=== PATIENT | male | born 1945 | race Caucasian/White ===

== ENCOUNTER → 2017-04-04 | Outpatient (CLI) | payer OTHER ==
[2017-04-04 11:17] LABS: ALT/SGPT 14 U/L (12-78); AST/SGOT 11 U/L (15-37); BLOOD UREA NITROGEN 15 mg/dl (7-18); BUN/CREATININE RATIO 14.7 (10-20); CARBON DIOXIDE 26 mmol/L (21-32); CHLORIDE 108 mmol/L (98-107); GLUCOSE 88 mg/dl (70-99); SODIUM 143 mmol/L (136-145)
[2017-04-04 11:19] LABS: ALB/GLOB RATIO 1.3 (0.9-2); ALKALINE PHOSPHATASE 68 U/L (45-117)
[2017-04-04 12:19] LABS: CALCIUM 8.9 mg/dl (8.5-10.1)
[2017-04-06 09:10] LABS: METHYLMALONIC ACID 123 NMOL/L (87-318)
[2017-04-06 09:14] LABS: BASO % 0.4 %; BASO ABS # 0.02 K/uL (0-0.2); COMPLETE YES; EOS % 3.2 %; HEMATOCRIT 37.3 % (42-52); LYMPH % 39.1 %; LYMPH ABS # 1.86 K/uL (1.2-3.4); MEAN CELL VOLUME 105.1 fL (80-100); MEAN CORPUSCULAR HEMOGLOBIN 34.9 pg (25-34); MEAN CORPUSCULAR HGB CONC 33.2 g/dl (32-36); MEAN PLATELET VOLUME 10.6 fL (7.4-10.4); MONO % 5.3 %; PLATELET COUNT 194 K/uL (130-400); RED BLOOD COUNT 3.55 M/uL (4.7-6.1); WHITE BLOOD COUNT 4.76 K/uL (4.8-10.8)
--- NOTE | 2017-04-12 09:23 | CODING QUERY MEDICAL NECESSITY ---
CQSUPPORTING DIAGNOSIS NEEDED A supporting diagnosis is required for the test/procedure performed on this patient in order for us to be reimbursed by the patient's insurance. Please provide a supporting diagnosis for the following test/procedure listed below next to the test name along with your signature. *If there is no additional diagnosis for this patient that would support the following test/procedure please document that below next to the test/procedure. Test(s)/Procedure(s) that require a supporting diagnosis: DOS 04/04/17 VITAMIN B12 TEST FOLIC ACID TEST Provider Signature: Date: Thank you Rashida You [facility] Information Management Once completed, please kindly fax back to [phone] For questions please call [phone]
== END | disposition home or self-care (01) ==
LOC: C.LABVPSUW 09:38
PROVIDERS: ATTEND Internal Medicine Critical Care Medicine
DX: D64.9 Anemia, unspecified (principal); R53.83 Other fatigue; E56.9 Vitamin deficiency, unspecified; R53.1 Weakness; R29.6 Repeated falls

== ENCOUNTER 2018-06-04 15:34 | Emergency (ER) | payer OTHER ==
[2018-06-04 15:50] VITALS: TEMP 37; Ht 167.6 cm
[2018-06-04] MEDS ORDERED: BENA10TA10 PO (16:45)
[2018-06-04] MEDS ORDERED: BNC20 PO (16:46)
[2018-06-04] MEDS ORDERED: SNM/25100 PO ×2 (16:54→17:01)
[2018-06-04] MEDS ORDERED: RIVA1TAB4 PO (16:54)
[2018-06-04] MEDS ORDERED: POLY335019 PO (16:54)
[2018-06-04] MEDS ORDERED: AMAN100C18 PO (16:54)
[2018-06-04] MEDS ORDERED: BNC5 PO (16:54)
[2018-06-04] MEDS ORDERED: DRON400T PO (16:54)
[2018-06-04] MEDS ORDERED: CHOL1000 PO (16:54)
[2018-06-04] MEDS ORDERED: MULT-506 PO (16:54)
[2018-06-04] MEDS ORDERED: DUTACAP PO (16:54)
[2018-06-04] MEDS ORDERED: ROPI1TAB PO (16:54)
[2018-06-04] MEDS ORDERED: KLN/5 PO (16:54)
[2018-06-04] MEDS ORDERED: CARB25TA12 PO (17:01)
--- NOTE | 2018-06-04 17:08 | EMERGENCY ROOM VISIT NOTE ---
ED Visit Note First contact with patient: 16:08 CHIEF COMPLAINT: Fall, right hip pain HISTORY OF PRESENTING ILLNESS: This is a 72-year-old male who presents to the emergency department by private vehicle with complaint of right hip pain after a fall 2 days ago. Patient states that he was going into the bathroom in the middle of the night, states that his walker "went out on me" and he lost his balance and fell. He states that he hit the wall with his back, then slid down and hit hard on his right hip. He was able to get himself up from the fall without any help and he has been able to walk on the right leg, but states that he has a lot of pain with doing so. The pain is in his right outer hip and radiates down the thigh towards the knee, he describes as an aching and stabbing pain, worse with movement and weightbearing, better with rest, currently rates the pain as 2/10. He has not taken any medications for the pain and has not tried ice or heat. He is on Xarelto for history of A. fib. Patient reports frequent falls secondary to Parkinson's. He denies any numbness /tingling or weakness of the leg. He denies any back pain. He does not think that he hit his head, but is not completely sure, he denies loss of consciousness. He denies any dizziness, chest pain, shortness of breath, abdominal pain, nausea or vomiting. He states that his urine has been orange in color which he attributes to a medication for his Parkinson's, he is unsure of any blood in his urine because of this. He denies any blood in his stool. REVIEW OF SYSTEMS: A complete 10 point review of systems was reviewed with the patient with pertinent positives and negatives as per history of present illness. All else were negative. PAST MEDICAL HISTORY: Hypertension, atrial fibrillation, Parkinson's disease. SOCIAL HISTORY: Lives at home. He denies tobacco use. ALLERGIES: No known allergies. PHYSICAL EXAM: CONSTITUTIONAL: Pleasant and cooperative. No acute distress. Well appearing and well nourished. HEENT: Normocephalic, atraumatic. Pupils equal, round and reactive to light, EOMI. TMs normal. Pharynx normal. NECK: Supple, full active range of motion without discomfort. No midline tenderness to palpation. No cervical adenopathy. RESPIRATORY: Clear to auscultation bilaterally with no wheezing, crackles, rhonchi or stridor. Equal expansion bilaterally. CARDIOVASCULAR: Regular rate and rhythm with no murmurs, rubs or gallops. Normal peripheral perfusion. No edema. GASTROINTESTINAL: Soft, nontender, nondistended. No palpable masses or HSM. Bowel sounds present in all quadrants. BACK: No midline tenderness of the thoracic or lumbar spine to palpation, no swelling, noted. Full range of motion of the back. MUSCULOSKELETAL: There is tenderness to palpation along the right outer hip and proximal thigh, 2 small bruises noted, no significant ecchymosis or hematoma. No tenderness to palpation of the right hip joint. There is increased pain with range of motion of the right knee and right hip. Bilateral lower extremities are equal in length, no shortening or external rotation of either extremity. Full range of motion of all other joints without discomfort. INTEGUMENTARY: No rash or other significant dermatologic conditions noted. NEUROLOGIC: Alert and oriented X 4 with normal affect. Cranial nerves II-XII grossly intact, no facial droop. No pronator drift. No focal neurologic deficits noted. Normal strength and sensation in all 4 extremities. Normal speech. Slow to move around with antalgic gait of the right leg. ED COURSE AND MEDICAL DECISION MAKING: CC: Patient presenting with complaint of fall, right hip pain DIFFERENTIAL DIAGNOSIS: Includes, but not limited to contusion, hematoma, hip fracture/dislocation, femur fracture, pelvic fracture, head trauma, neck trauma , among others. INTERPRETATION OF LABS: UA negative for blood, but did note some positive nitrite, though negative for bacteria. Urine culture pending. IMAGING: HEAD WITHOUT CONTRAST (CT) CLINICAL HISTORY: 72 years-old Male with fall, on xarelto, eval ICH. Acute fall with head trauma TECHNIQUE: Multiple axial CT images of the head were obtained without contrast. A dose lowering technique was utilized adhering to the principles of ALARA. CT DOSE: 638.56 mGycm COMPARISON: CT cervical spine of same day. FINDINGS: No acute intracranial hemorrhage, midline shift, intracranial mass, hydrocephalus, territorial ischemia or abnormal extra-axial collection. Mild atrophy with ex vacuo ventriculomegaly. Ill-defined low-attenuation about the white matter suggests chronic microvascular ischemic changes. The calvarium is intact. The paranasal sinuses, mastoid air cells, and middle ear cavities are clear. IMPRESSION: No acute intracranial abnormality. ----- CT OF THE CERVICAL SPINE WITHOUT CONTRAST CLINICAL HISTORY: Fall. Evaluate for fracture. COMPARISON STUDY: No previous studies for comparison. TECHNIQUE: Helical axial images of the cervical spine were obtained without IV contrast. Sagittal and coronal reconstructions were viewed. A dose lowering technique was utilized adhering to the principles of ALARA. FINDINGS: Alignment of the cervical spine is anatomic. Craniocervical junction is intact. Marked degenerative changes at the C1-C2 articulation are noted. A well-corticated calcific density posterior to the spinous processes of the upper to mid cervical spine is chronic. There is no acute fracture. Facet joints are intact. Note is made of moderate multilevel degenerative disc disease and facet arthrosis of the cervical spine. There is no prevertebral edema. IMPRESSION: No acute cervical spine fracture or subluxation. ----- CHEST 2 VIEWS ROUTINE CLINICAL HISTORY: Trauma. COMPARISON STUDY: No previous studies for comparison. FINDINGS: Patient is rotated. Note is made of mild cardiomegaly. There is pulmonary vascular congestion without overt pulmonary edema. No airspace opacities are present. No pneumothorax or pleural effusion is noted. IMPRESSION: 1. No pneumothorax. 2. Pulmonary vascular congestion without overt pulmonary edema. Mild cardiomegaly. ----- PELVIS 1 OR 2 VIEW ROUTINE, R FEMUR 2 VIEWS ROUTINE HISTORY: 72 years-old Male right hip/thigh pain, eval fx acute pelvic and right hip pain status post fall COMPARISON: None available TECHNIQUE: Single AP view of the pelvis with 2 views of the right femur FINDINGS: PELVIS: Demineralized appearance of the bones. Left hip total joint arthroplasty with satisfactory alignment. ORIF changes about the left iliac wing. Degenerative changes of the SI joints, pubic symphysis and imaged lower lumbar spine with moderate right hip osteoarthritis. No acute pelvic ring fracture identified. Arterial calcifications are noted. RIGHT FEMUR: Moderate right hip osteoarthritis. No acute fracture or dislocation. Moderate soft tissue swelling lateral to the hip. No opaque foreign body. IMPRESSION: 1. Moderate soft tissue swelling lateral to the right hip without acute fracture or dislocation. 2. Left hip total joint arthroplasty with satisfactory alignment. ----- RIGHT KNEE 2 VIEWS HISTORY: FALL COMPARISON: None. FINDINGS: There is no fracture or dislocation. Anterior soft tissue swelling. No significant knee effusion. Mild chondrocalcinosis. Mild osteoarthritis at the patellofemoral joint and medial compartment of the knee. No radiopaque foreign bodies. IMPRESSION: No fractures. Anterior soft tissue swelling. MEDICATION RECONCILIATION: I attest that I have personally reviewed the patient 's current medication list. INITIAL VITAL SIGNS REVIEW: I reviewed the patient's initial vital signs and interpret them as follows: T: Afebrile; BP: Normotensive; HR: Within normal limits; RR: Within normal limits; Pulse Ox: Within normal limits on room air. Blood pressure screening: The patient was found to have normal blood pressure on screening and does not require follow-up for repeat blood pressure check. SUMMARY: Patient was evaluated at bedside, history and physical exam performed. Patient is alert and oriented, in no acute distress, resting calmly in stretcher. He is slow to move around because of the pain in his right leg. 2 small bruises noted along the lateral aspect of the right hip and upper thigh , no large hematomas or contusions appreciated. No shortening or external rotation of the right hip to suggest dislocation, he is not tender directly over the hip joint, and he is noted to weight-bear and ambulate on the leg without significant difficulty. No evidence of head trauma, patient cannot fully say that he did not hit his head, and is on Xarelto. Neurologic exam is intact with no focal deficits. Orders were placed at bedside for x-rays of the pelvis, right femur and right knee, chest x-ray, CT head and cervical spine to evaluate for trauma. Patient was offered something for pain, he declined. He was offered an ice pack , he declined. Patient discussed with Dr. Valerio, who agrees with my assessment and plan. Imaging reviewed as above, no acute fractures, dislocations, or intra- hemorrhage. There is moderate soft tissue swelling of the right lateral hip consistent with a contusion. Patient reassessed multiple times throughout ED stay, he has remained stable, and reports that his pain has improved since being in the emergency department. He is asking to go home. Patient was updated on all results and plan for discharge, he was encouraged to follow closely with his primary care provider. Patient was also given strict return precautions should his symptoms worsen, he verbalized understanding. Patient was discharged home in stable condition and ambulatory. Current/Historical Medications Scheduled Amantadine Hcl (Amantadine Hcl), 1 CAP PO BID Cholecalciferol (Vitamin D3), 1 TAB PO DAILY Clonazepam (Klonopin), 0.5 MG PO HS Dronedarone Hcl (Multaq), 1 TAB PO BID Dutasteride-Tamsulosin Hcl (Bess), 0.5 MG PO HS Levodopa/Carbidopa (Sinemet 25MG/100MG), 1 TAB PO TID Multivitamin (Multivitamin), 1 TAB PO DAILY Olmesartan Medoxomil (Benicar), 2 TABS PO DAILY Polyethylene Glycol 3350 (Miralax), 17 GM PO DAILY Rivaroxaban (Xarelto), 20 MG PO DAILY Ropinirole (Requip), 1 MG PO TID Allergies Coded Allergies: No Known Allergies (Unverified , 06/04/18) Vital Signs Date Time Temp Pulse Resp B/P (MAP) Pulse Ox O2 Delivery O2 Flow Rate FiO2 06/04/18 18:45 59 20 132/65 100 06/04/18 17:42 54 16 153/72 98 06/04/18 15:50 37.0 61 19 134/72 91 Room Air Laboratory Results Test 06/04/18 16:30 Urine Color DK YELLOW Urine Appearance CLEAR (CLEAR) Urine pH 5.0 (4.5-7.5) Urine Specific [place] 1.025 (1.000-1.030) Urine Protein NEG (NEG) Urine Glucose (UA) NEG (NEG) Urine Ketones TRACE (NEG) Urine Occult Blood NEG (NEG) Urine Nitrite POS (NEG) Urine Bilirubin NEG (NEG) Urine Urobilinogen NEG (NEG) Urine Leukocyte Esterase TRACE (NEG) Urine WBC (Auto) 1-5 /hpf (0-5) Urine RBC (Auto) 0-4 /hpf (0-4) Urine Hyaline Casts (Auto) 10-30 /lpf (0-5) Urine Epithelial Cells (Auto) 10-20 /lpf (0-5) Urine Bacteria (Auto) NEG (NEG) Departure Information Impression Primary Impression: Fall Additional Impression: Contusion of right hip and thigh Dispostion Home / Self-Care Condition GOOD Referrals [facility] (PCP) Patient Instructions ED Contusion Hip, ED Mechanical Fall, ED Prevention Fall, [facility] Additional Instructions You have been evaluated and treated in the emergency department for your right hip pain after falling. CT scans and x-rays today do not show any fractures, dislocations, or internal bleeding. You have a contusion (bruising) of the right hip. You may take regular strength Tylenol (325 mg tablets) 1-2 tablets every 4-6 hours as needed for pain. Do not take more than 3000 mg in 24 hours. Apply ice intermittently infrequently to the area for the next 2 days to help reduce pain and swelling. You may alternate this with heat to help reduce pain. Try to stay off of the leg as much as possible for the next few days until your pain is improved. When you are up and about, use your walker to stabilize yourself and help prevent further falls. Please follow up with your primary care provider in the next few days for recheck of your condition. Please return to the emergency department for any worsening symptoms, including severe worsening pain, severe swelling or bruising of the leg, loss of feeling or movement in the leg, numbness in your groin, problems with your bowel or bladder function, or any other concerns. Problem Qualifiers Primary Impression: Fall Encounter type: initial encounter Qualified Codes: W19.XXXA - Unspecified fall, initial encounter Additional Impression: Contusion of right hip and thigh Encounter type: initial encounter Qualified Codes: S70.01XA - Contusion of right hip, initial encounter; S70.11XA - Contusion of right thigh, initial encounter
--- NOTE | 2018-06-04 17:11 | DIAGNOSTIC IMAGING REPORT ---
HEAD WITHOUT CONTRAST (CT) CLINICAL HISTORY: 72 years-old Male with fall, on xarelto, eval ICH. Acute fall with head trauma TECHNIQUE: Multiple axial CT images of the head were obtained without contrast. A dose lowering technique was utilized adhering to the principles of ALARA. CT DOSE: 638.56 mGycm COMPARISON: CT cervical spine of same day. FINDINGS: No acute intracranial hemorrhage, midline shift, intracranial mass, hydrocephalus, territorial ischemia or abnormal extra-axial collection. Mild atrophy with ex vacuo ventriculomegaly. Ill-defined low-attenuation about the white matter suggests chronic microvascular ischemic changes. The calvarium is intact. The paranasal sinuses, mastoid air cells, and middle ear cavities are clear. IMPRESSION: No acute intracranial abnormality. The above report was generated using voice recognition software. It may contain grammatical, syntax or spelling errors. Electronically signed by: Jatin Rodriguez M.D. 06/04/2018 5:09 PM Dictated Date/Time: 06/04/2018 5:07 PM
--- NOTE | 2018-06-04 17:13 | DIAGNOSTIC IMAGING REPORT ---
CT OF THE CERVICAL SPINE WITHOUT CONTRAST CLINICAL HISTORY: Fall. Evaluate for fracture. COMPARISON STUDY: No previous studies for comparison. TECHNIQUE: Helical axial images of the cervical spine were obtained without IV contrast. Sagittal and coronal reconstructions were viewed. A dose lowering technique was utilized adhering to the principles of ALARA. FINDINGS: Alignment of the cervical spine is anatomic. Craniocervical junction is intact. Marked degenerative changes at the C1-C2 articulation are noted. A well-corticated calcific density posterior to the spinous processes of the upper to mid cervical spine is chronic. There is no acute fracture. Facet joints are intact. Note is made of moderate multilevel degenerative disc disease and facet arthrosis of the cervical spine. There is no prevertebral edema. IMPRESSION: No acute cervical spine fracture or subluxation. Electronically signed by: Thang Heck M.D. 06/04/2018 5:12 PM Dictated Date/Time: 06/04/2018 5:08 PM
--- NOTE | 2018-06-04 17:45 | DIAGNOSTIC IMAGING REPORT ---
CHEST 2 VIEWS ROUTINE CLINICAL HISTORY: Trauma. COMPARISON STUDY: No previous studies for comparison. FINDINGS: Patient is rotated. Note is made of mild cardiomegaly. There is pulmonary vascular congestion without overt pulmonary edema. No airspace opacities are present. No pneumothorax or pleural effusion is noted. IMPRESSION: 1. No pneumothorax. 2. Pulmonary vascular congestion without overt pulmonary edema. Mild cardiomegaly. Electronically signed by: Thang Heck M.D. 06/04/2018 5:43 PM Dictated Date/Time: 06/04/2018 5:42 PM
--- NOTE | 2018-06-04 17:46 | DIAGNOSTIC IMAGING REPORT ---
PELVIS 1 OR 2 VIEW ROUTINE, R FEMUR 2 VIEWS ROUTINE HISTORY: 72 years-old Male right hip/thigh pain, eval fx acute pelvic and right hip pain status post fall COMPARISON: None available TECHNIQUE: Single AP view of the pelvis with 2 views of the right femur FINDINGS: PELVIS: Demineralized appearance of the bones. Left hip total joint arthroplasty with satisfactory alignment. ORIF changes about the left iliac wing. Degenerative changes of the SI joints, pubic symphysis and imaged lower lumbar spine with moderate right hip osteoarthritis. No acute pelvic ring fracture identified. Arterial calcifications are noted. RIGHT FEMUR: Moderate right hip osteoarthritis. No acute fracture or dislocation. Moderate soft tissue swelling lateral to the hip. No opaque foreign body. IMPRESSION: 1. Moderate soft tissue swelling lateral to the right hip without acute fracture or dislocation. 2. Left hip total joint arthroplasty with satisfactory alignment. The above report was generated using voice recognition software. It may contain grammatical, syntax or spelling errors. Electronically signed by: Jatin Rodriguez M.D. 06/04/2018 5:45 PM Dictated Date/Time: 06/04/2018 5:42 PM
[2018-06-04 18:45] VITALS: BP 132/65; PULSE 59; O2SAT 100
== END 2018-06-04 18:47 | disposition home or self-care (01) ==
LOC: C.EDB 15:38 → C.EDD 18:47
DX: S70.01XA Contusion of right hip, initial encounter (principal); S70.11XA Contusion of right thigh, initial encounter; W01.198A Fall on same level from slipping, tripping and stumbling with subsequent striking against other object, initial encounter; I10 Essential (primary) hypertension; I48.91 Unspecified atrial fibrillation; G20 Parkinson's disease; Z79.899 Other long term (current) drug therapy

== ENCOUNTER → 2018-06-04 | Outpatient (CLI) | payer OTHER ==
[~2018-06-04] MED LIST: AMAN100C18 PO; BENA10TA10 PO; BNC20 PO; BNC5 PO; CARB25TA12 PO; CHOL1000 PO; DRON400T PO; DUTACAP PO; KLN/5 PO; MULT-506 PO; POLY335019 PO; RIVA1TAB4 PO; ROPI1TAB PO; SNM/25100 PO
--- NOTE | 2018-06-04 14:43 | DIAGNOSTIC IMAGING REPORT ---
RIGHT KNEE 2 VIEWS HISTORY: FALL COMPARISON: None. FINDINGS: There is no fracture or dislocation. Anterior soft tissue swelling. No significant knee effusion. Mild chondrocalcinosis. Mild osteoarthritis at the patellofemoral joint and medial compartment of the knee. No radiopaque foreign bodies. IMPRESSION: No fractures. Anterior soft tissue swelling. Electronically signed by: Silas Almeida M.D. 06/04/2018 2:41 PM Dictated Date/Time: 06/04/2018 2:39 PM
== END | disposition home or self-care (01) ==
LOC: C.RAD 14:09
PROVIDERS: ATTEND Nurse Practitioner
DX: R52 Pain, unspecified (principal); R60.9 Edema, unspecified; W19.XXXA Unspecified fall, initial encounter

== ENCOUNTER 2018-10-23 09:30 | Inpatient (IN) ==
[2018-10-23 09:56] LABS: Basophils # (auto) 0.02 K/uL (0-0.2); Basophils % (auto) 0.5 %; Eosinophils % (auto) 2.5 %; Hematocrit (blood only) 35.9 % (42-52); Hemoglobin 12.4 g/dL (14.0-18.0); Lymphocytes # (auto) 1.03 K/uL (1.2-3.4); Lymphocytes % (auto) 25.9 %; Mean Corpuscular Hgb Conc 34.5 g/dL (32-36); Mean Corpuscular Volume 100.6 fL (80-100); Monocytes # (auto) 0.25 K/uL (0.11-0.59); Monocytes % (auto) 6.3 %; Neutrophils # (auto) 2.58 K/uL (1.4-6.5); Neutrophils % (auto) 64.8 %; Platelet Count 103 K/uL (130-400); RDW Coefficient of Variation 15.1 % (11.5-14.5); Red Blood Count 3.57 M/uL (4.7-6.1); White Blood Count 3.98 K/uL (4.8-10.8)
--- NOTE | 2018-10-23 09:57 | XRay Report ---
XR chest 1V portable HISTORY: Sepsis COMPARISON: Chest 10/09/2018. FINDINGS: No pneumothorax. No pleural effusions. The heart remains moderately enlarged. Diffuse inter stitial and vascular thickening persists consistent with mild pulmonary edema. This remains unchanged . No new focal lung consolidations to suggest pneumonia. IMPRESSION: No change in the mild interstitial pulmonary edema and cardiomegaly. Electronically signed by: Silas Almeida M.D. 10/23/2018 9:55 AM
--- NOTE | 2018-10-23 10:04 | Emergency Department Note ---
Entered by Gillian Osborne acting as a scribe for History of Present Illness General Chief complaint: Hypothermia Stated complaint: hypothermia / [place] Time Seen by Provider: 10/23/18 09:36 Source: other (nursing staff) Limitations: other (Parkinson's Disease) History of Present Illness Provider complaint: hypothermia Onset (ago): hour(s) (today) Location: left and right Quality: + other (hypothermia) The patient is a 73 year old male who presents to the Emergency Room with complaints of hypothermia today. Limited HPI secondary to Parkinson's Disease. Nursing staff states that the patient has a history of hypothermia. Per nursing staff, the patient is at his baseline mental status. Per nursing staff, they were unable to get the patient's temperature higher than 90 degrees the last time he was here. Home Medications Home Medications Medication Instructions Recorded Confirmed Type acetaminophen [Tylenol] 650 mg PO Q6H PRN 07/04/18 10/23/18 History carbidopa-levodopa [Sinemet CR] 1 tab PO TID 07/04/18 10/23/18 History cholecalciferol (vitamin D3) 1 tab PO QAM 07/04/18 10/23/18 History [Vitamin D3] clonazepam 0.5 mg PO HS 07/04/18 10/23/18 History dronedarone [Multaq] 400 mg PO BID 07/04/18 10/23/18 History dutasteride-tamsulosin [Bess] 1 cap PO HS 07/04/18 10/23/18 History entacapone 200 mg PO TID 07/04/18 10/23/18 History polyethylene glycol 3350 [Miralax] 17 g PO BID 07/04/18 10/23/18 History ropinirole [Requip] 1 mg PO TID 07/04/18 10/23/18 History pediatric multivitamin [Gummi Bear 1 tab PO QAM 10/23/18 10/23/18 History Multivitamin] Allergies Allergy/AdvReac Type Severity Reaction Status Date / Time No Known Allergies Allergy Unverified 10/23/18 11:40 Past Med/Surg History Medical History Parkinson disease (Chronic) Afib (Chronic) Social History Current Living Situation[place] current occupational status: retired Feels Safe at Home: Yes Smoking Status: Never smoker Hx Alcohol Use: No Hx Substance Use: No Beliefs That Will Affect Care: None Preferred Language: Nepali Communication Ability: Impaired Communication Ability Comment: answers some yes/no questions or states, "my kinows" Truss Designer Required: No Review of Systems Limited ROS secondary to Parkinson's Disease. Physical Exam Vital Signs Vital Signs - 24 hr 10/23/18 09:46 10/23/18 09:53 10/23/18 10:01 Temperature 33.6 C L Temperature Source Rectal Rectal Temperature Sepsis Recent Fever Within 48 Hours No Sepsis Action Taken by Nursing No Action Required Pulse Rate 62 54 L 53 L Pulse Rate [Brachial] Pulse Rhythm Regular Pulse Strength Normal Respiratory Rate 20 14 15 Respiratory Effort / Characteristics Non-Labored Spontaneous Respiratory Depth Normal Respiratory Pattern Regular Blood Pressure 151/73 H 143/65 H 136/64 Blood Pressure [Right Arm] Blood Pressure Mean 99 91 88 Blood Pressure Mean [Right Arm] Blood Pressure Position Sitting Blood Pressure Position [Right Arm] Pulse Oximetry 98 97 94 Oxygen Delivery Method Room Air 10/23/18 10:23 10/23/18 10:38 10/23/18 11:00 Temperature Temperature Source Rectal Temperature Sepsis Recent Fever Within 48 Hours Sepsis Action Taken by Nursing Pulse Rate 66 46 L 47 L Pulse Rate [Brachial] Pulse Rhythm Pulse Strength Respiratory Rate 22 16 18 Respiratory Effort / Characteristics Respiratory Depth Respiratory Pattern Blood Pressure 144/69 H 137/68 Blood Pressure [Right Arm] Blood Pressure Mean 94 91 Blood Pressure Mean [Right Arm] Blood Pressure Position Blood Pressure Position [Right Arm] Pulse Oximetry 94 93 95 Oxygen Delivery Method 10/23/18 11:01 10/23/18 11:10 10/23/18 11:20 Temperature Temperature Source Rectal Temperature Sepsis Recent Fever Within 48 Hours Sepsis Action Taken by Nursing Pulse Rate 46 L 44 L 48 L Pulse Rate [Brachial] Pulse Rhythm Pulse Strength Respiratory Rate 16 9 L 10 L Respiratory Effort / Characteristics Respiratory Depth Respiratory Pattern Blood Pressure 131/64 Blood Pressure [Right Arm] Blood Pressure Mean 86 Blood Pressure Mean [Right Arm] Blood Pressure Position Blood Pressure Position [Right Arm] Pulse Oximetry 94 93 96 Oxygen Delivery Method 10/23/18 11:30 10/23/18 11:32 10/23/18 11:40 Temperature Temperature Source Rectal Temperature Sepsis Recent Fever Within 48 Hours Sepsis Action Taken by Nursing Pulse Rate 50 L 48 L 50 L Pulse Rate [Brachial] Pulse Rhythm Pulse Strength Respiratory Rate 16 19 19 Respiratory Effort / Characteristics Respiratory Depth Respiratory Pattern Blood Pressure Blood Pressure [Right Arm] Blood Pressure Mean 74 Blood Pressure Mean [Right Arm] Blood Pressure Position Blood Pressure Position [Right Arm] Pulse Oximetry 95 96 95 Oxygen Delivery Method 10/23/18 11:46 10/23/18 11:50 10/23/18 12:00 Temperature Temperature Source Rectal Temperature Sepsis Recent Fever Within 48 Hours Sepsis Action Taken by Nursing Pulse Rate 52 L 55 L 56 L Pulse Rate [Brachial] Pulse Rhythm Pulse Strength Respiratory Rate 13 17 13 Respiratory Effort / Characteristics Respiratory Depth Respiratory Pattern Blood Pressure 132/62 Blood Pressure [Right Arm] Blood Pressure Mean 85 Blood Pressure Mean [Right Arm] Blood Pressure Position Blood Pressure Position [Right Arm] Pulse Oximetry 97 97 96 Oxygen Delivery Method 10/23/18 12:01 10/23/18 12:10 10/23/18 12:16 Temperature Temperature Source Rectal Temperature Sepsis Recent Fever Within 48 Hours Sepsis Action Taken by Nursing Pulse Rate 55 L 58 L 56 L Pulse Rate [Brachial] Pulse Rhythm Pulse Strength Respiratory Rate 15 24 18 Respiratory Effort / Characteristics Respiratory Depth Respiratory Pattern Blood Pressure 131/63 127/68 Blood Pressure [Right Arm] Blood Pressure Mean 85 87 Blood Pressure Mean [Right Arm] Blood Pressure Position Blood Pressure Position [Right Arm] Pulse Oximetry 96 95 97 Oxygen Delivery Method 10/23/18 12:20 10/23/18 12:30 10/23/18 12:31 Temperature Temperature Source Rectal Temperature 34.9 C L Sepsis Recent Fever Within 48 Hours Sepsis Action Taken by Nursing Pulse Rate 58 L 60 60 Pulse Rate [Brachial] Pulse Rhythm Pulse Strength Respiratory Rate 15 14 21 Respiratory Effort / Characteristics Respiratory Depth Respiratory Pattern Blood Pressure 133/74 Blood Pressure [Right Arm] Blood Pressure Mean 93 Blood Pressure Mean [Right Arm] Blood Pressure Position Blood Pressure Position [Right Arm] Pulse Oximetry 96 Oxygen Delivery Method 10/23/18 12:57 10/23/18 13:43 Temperature 36.4 C L Temperature Source Oral Rectal Temperature Sepsis Recent Fever Within 48 Hours Sepsis Action Taken by Nursing Pulse Rate Pulse Rate [Brachial] 68 Pulse Rhythm Pulse Strength Respiratory Rate 20 Respiratory Effort / Characteristics Spontaneous Respiratory Depth Respiratory Pattern Regular Blood Pressure Blood Pressure [Right Arm] 125/63 Blood Pressure Mean Blood Pressure Mean [Right Arm] 83 Blood Pressure Position Blood Pressure Position [Right Arm] Lying Pulse Oximetry 95 Oxygen Delivery Method Room Air Room Air GENERAL: Patient is listless and slow to respond to questions. He follows questions appropriately. EYES: The conjunctivae are clear. The pupils are round and reactive. EARS, NOSE, MOUTH AND THROAT: The nose is without any evidence of any deformity. Mucous membranes are moist tongue is midline NECK: The neck is nontender and supple. RESPIRATORY: Normal respiratory effort is noted there is no evidence of wheezing rhonchi or rales CARDIOVASCULAR: Regular rate and rhythm noted there no murmurs rubs or gallops normal S1 normal S2 GASTROINTESTINAL: The abdomen is soft. Bowel sounds are present in all quadrants. Abdomen is nontender MUSCULOSKELETAL/EXTREMITIES: There is no evidence of gross deformity full range of motion is noted in the hips and shoulders SKIN: There is no obvious evidence of any rash. Trace pedal edema was noted bilaterally. NEUROLOGIC: Patient is awake. He is slow to follow commands. Strength was symmetric in all extremities but muscle rigidity was appreciated. Course 0936: Past medical records reviewed. The patient was evaluated in room C1A, and a complete history and physical examination were performed. 1134: I discussed the patient's case with Dr. Brittany Chandler who will evaluate the patient for further management. Consultations Consultation #1: Dr. Brittany Chandler Time: 11:34 Medical Decision Making Differential Diagnosis Differentials include: ICH, CVA, PNA, bronchitis, PE, UTI, gastroenteritis, electrolyte abnormality, ACS, CHF among others. Medical Records Attestation: I reviewed the patient's medical records. Home Medications Current Medication List: was personally reviewed by me Laboratory Data Attestation: I reviewed the patient's lab results. Result diagrams: 10/23/18 09:44 10/23/18 09:44 Lab Results 10/23/18 10/23/18 10/23/18 Range/Units 09:44 09:44 09:44 WBC 3.98 L (4.8-10.8) K/uL RBC 3.57 L (4.7-6.1) M/uL Hgb 12.4 L (14.0-18.0) g/dL Hct 35.9 L (42-52) % MCV 100.6 H (80-100) fL MCH 34.7 H (25-34) pg MCHC 34.5 (32-36) g/dL RDW Std Deviation 54.0 H (36.4-46.3) fL RDW Coeff of Martha 15.1 H (11.5-14.5) % Plt Count 103 L (130-400) K/uL MPV 11.0 H (7.4-10.4) fL Immature Gran % (Auto) 0.0 % Neut % (Auto) 64.8 % Lymph % (Auto) 25.9 % [facility] % (Auto) 6.3 % Eos % (Auto) 2.5 % Baso % (Auto) 0.5 % Immature Gran # (Auto) 0.00 (0.00-0.02) K/uL Neut # (Auto) 2.58 (1.4-6.5) K/uL Lymph # (Auto) 1.03 L (1.2-3.4) K/uL [facility] [place] [facility] # (Auto) 0.25 (0.11-0.59) K/uL Eos # (Auto) 0.10 (0-0.5) K/uL Baso # (Auto) 0.02 (0-0.2) K/uL ESR 16 H (0-14) mm/hr PT 10.7 (9.0-12.0) Seconds INR 1.1 (0.9-1.1) APTT 31.2 H (21.0-31.0) Seconds PTT Ratio 1.2 Sodium (136-145) mmol/L Potassium (3.5-5.1) mmol/L Chloride (98-107) mmol/L Carbon Dioxide (21-32) mmol/L Anion Gap (3-11) BUN (7-18) mg/dl Creatinine (0.6-1.4) mg/dl Est Cr Clr Drug Dosing Est GFR ( Amer) Est GFR (Non-Af Amer) BUN/Creatinine Ratio (10-20) Glucose (70-99) mg/dl POC Lactic Acid Josr (0.90-1.70) mmol/L Calcium (8.5-10.1) mg/dl Magnesium (1.8-2.4) mg/dl Total Bilirubin (0.2-1) mg/dl AST (15-37) U/L ALT (12-78) U/L Alkaline Phosphatase (45-117) U/L Troponin I (0-0.045) ng/ml C-Reactive Protein (0-0.29) mg/dl Total Protein (6.4-8.2) gm/dl Albumin (3.4-5.0) gm/dl Globulin (2.5-4.0) gm/dl Albumin/Globulin Ratio (0.9-2) TSH (0.300-4.500) uIu/ml Free T4 (0.8-1.6) ng/dl 10/23/18 10/23/18 Range/Units 09:44 09:53 WBC (4.8-10.8) K/uL RBC (4.7-6.1) M/uL Hgb (14.0-18.0) g/dL Hct (42-52) % MCV (80-100) fL MCH (25-34) pg MCHC (32-36) g/dL RDW Std Deviation (36.4-46.3) fL RDW Coeff of Martha (11.5-14.5) % Plt Count (130-400) K/uL MPV (7.4-10.4) fL Immature Gran % (Auto) % Neut % (Auto) % Lymph % (Auto) % [facility] [place] % (Auto) % Eos % (Auto) % Baso % (Auto) % Immature Gran # (Auto) (0.00-0.02) K/uL Neut # (Auto) (1.4-6.5) K/uL Lymph # (Auto) (1.2-3.4) K/uL [facility] [place] [facility] # (Auto) (0.11-0.59) K/uL Eos # (Auto) (0-0.5) K/uL Baso # (Auto) (0-0.2) K/uL ESR (0-14) mm/hr PT (9.0-12.0) Seconds INR (0.9-1.1) APTT (21.0-31.0) Seconds PTT Ratio Sodium 144 (136-145) mmol/L Potassium 4.4 (3.5-5.1) mmol/L Chloride 112 H (98-107) mmol/L Carbon Dioxide 27 (21-32) mmol/L Anion Gap 5.0 (3-11) BUN 19 H (7-18) mg/dl Creatinine 0.82 (0.6-1.4) mg/dl Est Cr Clr Drug Dosing Not Reportable Est GFR ( Amer) 102.4 Est GFR (Non-Af Amer) 88.3 BUN/Creatinine Ratio 23.2 H (10-20) Glucose 66 L (70-99) mg/dl POC Lactic Acid Josr 0.53 L (0.90-1.70) mmol/L Calcium 9.1 (8.5-10.1) mg/dl Magnesium 2.0 (1.8-2.4) mg/dl Total Bilirubin 0.6 (0.2-1) mg/dl AST 23 (15-37) U/L ALT 31 (12-78) U/L Alkaline Phosphatase 102 (45-117) U/L Troponin I < 0.015 (0-0.045) ng/ml C-Reactive Protein 0.94 H (0-0.29) mg/dl Total Protein 7.2 (6.4-8.2) gm/dl Albumin 3.5 (3.4-5.0) gm/dl Globulin 3.7 (2.5-4.0) gm/dl Albumin/Globulin Ratio 1.0 (0.9-2) TSH 9.730 H (0.300-4.500) uIu/ml Free T4 1.08 (0.8-1.6) ng/dl Imaging Data Radiologist's Impression: Radiology results as stated below per my review and the radiologist's interpretation: XR chest 1V portable HISTORY: Sepsis COMPARISON: Chest 10/09/2018. FINDINGS: No pneumothorax. No pleural effusions. The heart remains moderately enlarged. Diffuse interstitial and vascular thickening persists consistent with mild pulmonary edema. This remains unchanged. No new focal lung consolidations to suggest pneumonia. IMPRESSION: No change in the mild interstitial pulmonary edema and cardiomegaly. Electronically signed by: Silas Almeida M.D. 10/23/2018 9:[address] OF THE HEAD WITHOUT CONTRAST CLINICAL HISTORY: hypothermic, hx of parkinsons COMPARISON STUDY: Head CT October 09, 2018. CT DOSE: 729.78 mGycm TECHNIQUE: Helical axial images of the head were obtained without IV contrast. Automated exposure control was utilized for the study. A dose lowering technique was utilized adhering to the principles of ALARA. FINDINGS: No acute intracranial hemorrhage, midline shift or mass effect is present. Ventricular system is stable. Basilar cisterns are patent. There are no extra axial collections. White matter hypodensities are unchanged. There are no findings to suggest acute dural sinus thrombosis or acute territorial infarct. There are no significant calvarial abnormalities. There is mild ethmoid sinus mucosal thickening. IMPRESSION: No acute intracranial findings. Electronically signed by: Thang Heck M.D. 10/23/2018 10:21 AM ECG Data Attestation: I personally reviewed and interpreted this ECG as follows: Indication: other (hypothermia) Rate (beats per minute): 53 Rhythm: sinus bradycardia Findings: no PAC, no PVC, no ST depression, no ST elevation and no ectopy Comparison ECG Date: from (10/09/18) Change: no significant change Blood Pressure Blood Pressure Findings: Normal blood pressure MDM Narrative The patient is a 73-year-old male who presented to the emergency department for an evaluation of frequency of urination and hematuria. The patient has been having problems with hematuria over the last few months. He was seen by urologist in [place] where he lived previously and had a cystoscopy. No cause for the patient's hematuria could be found. The patient presents to the emergency department today because of ongoing symptoms. His abdominal exam was not consistent with a surgical abdomen. The patient was not urinary retention. I discussed the patient's laboratory and radiographic studies with him. I also discussed his case with the [facility] urology group. At this time the patient is scheduled for a follow-up appointment but they will change his appointment to a cystoscopy. The patient was encouraged to continue all medications as prescribed and return to the emergency department immediately if symptoms change worsen or the need arises. Otherwise I did recommend that he follow-up with his family doctor as well. Impression & Plan Hypothermia, Parkinson's disease Discharge Plan Visit Data *Final* Discharge Date/Time: 10/23/18 12:56 Chief Complaint: Hypothermia Stated Complaint: hypothermia / [facility] ED Provider: Tab Whipple Discharge Problem: Hypothermia, Parkinson's disease Patient Disposition: Admitted As Inpatient Discharge Instructions Interventions: ED Discharge Assessment Last Done: 10/23/18 12:56 The scribe's documentation has been prepared under my direction and personally reviewed by me in its entirety. I confirm that the note above accurately reflects all work, treatment, procedures, and medical decision making performed by me.
[2018-10-23 10:07] LABS: INR 1.1 (0.9-1.1); Partial Thromboplastin Ratio 1.2; Partial Thromboplastin Time 31.2 Seconds (21.0-31.0); Prothrombin Time 10.7 Seconds (9.0-12.0)
[2018-10-23 10:10] LABS: Albumin Level 3.5 gm/dl (3.4-5.0); Aspartate Aminotransferase 23 U/L (15-37); BUN Creatinine Ratio 23.2 (10-20); Blood Urea Nitrogen 19 mg/dl (7-18); C Reactive Protein 0.94 mg/dl (0-0.29); Calcium 9.1 mg/dl (8.5-10.1); Carbon Dioxide 27 mmol/L (21-32); Chloride 112 mmol/L (98-107); Est GFR (African American) 102.4; Est GFR (Non-African American) 88.3; Glucose 66 mg/dl (70-99); Potassium 4.4 mmol/L (3.5-5.1); Sodium 144 mmol/L (136-145)
[2018-10-23 10:21] LABS: Alanine Aminotransferase 31 U/L (12-78); Alkaline Phosphatase 102 U/L (45-117); Bilirubin,Total 0.6 mg/dl (0.2-1); Globulin 3.7 gm/dl (2.5-4.0); Total Protein 7.2 gm/dl (6.4-8.2); Troponin I < 0.015 ng/ml (0-0.045)
--- NOTE | 2018-10-23 10:22 | CT Scan Report ---
CT OF THE HEAD WITHOUT CONTRAST CLINICAL HISTORY: hypothermic, hx of parkinsons COMPARISON STUDY: Head CT October 09, 2018. CT DOSE: 729.78 mGycm TECHNIQUE: Helical axial images of the head were obtained without IV contrast. Automated exposure con trol was utilized for the study. A dose lowering technique was utilized adhering to the principles o f ALARA. FINDINGS: No acute intracranial hemorrhage, midline shift or mass effect is present. Ventricular syst em is stable. Basilar cisterns are patent. There are no extra axial collections. White matter hypoden sities are unchanged. There are no findings to suggest acute dural sinus thrombosis or acute territor ial infarct. There are no significant calvarial abnormalities. There is mild ethmoid sinus mucosal th ickening. IMPRESSION: No acute intracranial findings. Electronically signed by: Thang Heck M.D. 10/23/2018 10:21 AM
[2018-10-23 10:33] LABS: T4 Free Thyroxine 1.08 ng/dl (0.8-1.6)
--- NOTE | 2018-10-23 12:28 | History & Physical Report ---
Date of Service October 23, 2018 Assessment & Plan (1) Hypothermia: Uncertain etiology CXR neg CT head neg PRP WNL Mild anemia with an elevated MCV B12, folate pending Mild hypothyroidism noted, T4 WNL T3, rT3, thyroid Ab pending Core temp rewarming issues vs hypothyroidism, will start on low dose synthroid (2) Hypothyroid: Not a current dx Also noted to be bradycardia to the 40s both today and on last visit Asx with this apparently (3) Parkinson's disease: continue home meds (4) A-fib: continue home meds (5) DVT prophylaxis: SCDs History of Present Illness Chief Complaint: 73 y/o M who was sent here from the [facility] for c/o hypothermia. Pt is unable to give me any hx regarding this and there are no family members at bedside. Per ED record, pt was seen in the ED on 10/09 and was hypothermic at that time as well. He was rewarmed and returned to [facility]. I spoke with Dr. Glasgow who states that he cannot accept pt back without full rewarming as their facility is not allowed to use any sort of warming device. He feels that pt was not fully rewarmed to his core prior to being returned to their facility. Pt has declined in mentation, however Dr. Glasgow states he has not seen pt since prior to his inital trip to the ED on 10/09. Unable to obtain full ROS. Pt answers "no" when asked if he has any pain or trouble breathing. Primary Care Provider: [facility] Allergies Allergy/AdvReac Type Severity Reaction Status Date / Time No Known Allergies Allergy Unverified 10/23/18 11:40 Home Medications Home Medications Medication Instructions Recorded Confirmed Type acetaminophen [Tylenol] 650 mg PO Q6H PRN 07/04/18 10/23/18 History carbidopa-levodopa [Sinemet CR] 1 tab PO TID 07/04/18 10/23/18 History cholecalciferol (vitamin D3) 1 tab PO QAM 07/04/18 10/23/18 History [Vitamin D3] clonazepam 0.5 mg PO HS 07/04/18 10/23/18 History dronedarone [Multaq] 400 mg PO BID 07/04/18 10/23/18 History dutasteride-tamsulosin [Bess] 1 cap PO HS 07/04/18 10/23/18 History entacapone 200 mg PO TID 07/04/18 10/23/18 History polyethylene glycol 3350 [Miralax] 17 g PO BID 07/04/18 10/23/18 History ropinirole [Requip] 1 mg PO TID 07/04/18 10/23/18 History pediatric multivitamin [Gummi Bear 1 tab PO QAM 10/23/18 10/23/18 History Multivitamin] Past Med/Surg History Medical History Parkinson disease (Chronic) Afib (Chronic) Social History Current Living Situation: Long Term current occupational status: retired Feels Safe at Home: Yes Smoking Status: Never smoker Hx Alcohol Use: No Hx Substance Use: No Beliefs That Will Affect Care: None Preferred Language: Mongolian Communication Ability: Impaired Communication Ability Comment: answers some yes/no questions or states, "my kinows" 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 Review of Systems Pertinent positives and negatives reviewed in HPI--all others negative Physical Exam 2 Vital Signs (Past 24 Hours): Last Vital Signs Temp 33.6 C L 10/23/18 09:46 Pulse 46 L 10/23/18 10:38 Resp 16 10/23/18 10:38 BP 137/68 10/23/18 10:38 Pulse Ox 93 10/23/18 10:38 Constitutional: WD/WN, vitals as above Eyes: normal visual victoria by confrontation and + anicteric sclerae Neck: normal visual inspection and trachea midline Respiratory: normal respiratory effort, lungs clear to auscultation Cardiovascular: Rate/Rhythm: regular rate and regular rhythm Gastrointestinal (Abdomen): Inspection/Auscultation: abdomen not distended Percussion/Palpation: abdomen soft; abdomen nontender Musculoskeletal: Head/Neck/Chest: normocephalic and head atraumatic negative for edema, peripheral pulses intact Skin: no rashes, warm and dry Neurologic: awake Speech / Cognition: normal speech (clear when answering no, no other speech noted) lethargic to respond Psychiatric: Orientation: oriented to person Eye Contact: good eye contact Affect: + flat affect Results & Data Diagnostic Findings CXR neg CT head neg for acute Code Status & VTE Plan Code Status DNR/DNI per documentation from facility VTE Prophylaxis Plan VTE Prophylaxis will be ordered: Yes _ (1) Hypothermia Encounter type: initial encounter Qualified Code(s): T68.XXXA - Hypothermia, initial encounter
[2018-10-23] MEDS ORDERED: NON-FORMULARY MEDICATION (Acetaminophen [Tylenol] 650 MG) PO PRN (13:41)
[2018-10-23] MEDS ORDERED: ACETAMINOPHEN 325 MG TAB PO PRN (13:41)
[2018-10-23] MEDS ORDERED: ONDANSETRON INJ 2 MG/ML 2 ML VIAL IV PRN (13:41)
[2018-10-23] MEDS ORDERED: MAGNESIUM HYDROXIDE SUSP 30 ML UDC PO PRN (13:41)
[2018-10-23 15:04] LABS: Folate (Folic Acid) 16.27 ng/ml (>5.38)
[2018-10-23 15:09] LABS: T3 Free 2.84 pg/ml (2.3-4.2)
[2018-10-23] MEDS: ROPINIROLE HCL 1 MG TABLET PO SCH ×2 (15:28→21:54)
[2018-10-23] MEDS: CARBIDOPA/LEVODOPA 50/200MG EXT REL TAB PO SCH ×2 (15:28→21:53)
[2018-10-23] MEDS: ENTACAPONE 200 MG TAB PO SCH ×2 (15:28→21:53)
[2018-10-23] MEDS ORDERED: JALYN PO SCH (21:00)
[2018-10-23] MEDS: POLYETHYLENE (MIRALAX) 17 GM PACK PO SCH (21:52)
[2018-10-23] MEDS: clonazePAM 0.5 MG TAB PO SCH (21:53)
[2018-10-23] MEDS: DRONEDARONE HCL 400 MG TAB PO SCH (21:53)
[2018-10-23] MEDS: DUTASTERIDE PO SCH (22:05)
[2018-10-23] MEDS: TAMSULOSIN PO SCH (22:05)
[2018-10-24] MEDS ORDERED: LEVOTHYROXINE SODIUM 25 MCG TABLET PO SCH (06:30)
--- NOTE | 2018-10-24 06:51 | XRay Report ---
XR chest 1V portable CLINICAL HISTORY: 73 years-old Male presenting with Possible aspiration. TECHNIQUE: Portable upright AP view of the chest was obtained. COMPARISON: 10/23/2018. FINDINGS: The patient is BURM[place] rotated. Atherosclerosis of the aortic arch. Cardiac silhouette enlarged. Pulmonar y vascular prominence. Bronchial wall cuffing suggested. Mildly low lung volumes. Minimal basilar opa cities. Trace right pleural effusion suggested. No pneumothorax. Degenerative changes of the thoracic spine. Upper abdomen normal. IMPRESSION: 1. Cardiomegaly with volume overload/congestive change. No maritza pulmonary edema at this time. Findi ngs are not significantly changed from prior. 2. Trace right pleural effusion suspected. Electronically signed by: Kyle Waters M.D. 10/24/2018 6:50 AM
[2018-10-24] MEDS ORDERED: PIPERACILL/TAZOBAC CONSULT ACTIVE PRN (07:52)
[2018-10-24] MEDS: ENTACAPONE 200 MG TAB PO SCH ×3 (08:02→19:52)
[2018-10-24] MEDS: FLINTSTONES COMPLETE CHEWABLE TAB PO SCH (08:02)
[2018-10-24] MEDS: [UNRECOGNIZED DRUG - OTHER] PO SCH (08:03)
[2018-10-24] MEDS: ROPINIROLE HCL 1 MG TABLET PO SCH ×3 (08:03→19:54)
[2018-10-24] MEDS: POLYETHYLENE (MIRALAX) 17 GM PACK PO SCH ×2 (08:03→19:52)
[2018-10-24] MEDS: DRONEDARONE HCL 400 MG TAB PO SCH ×2 (08:03→19:53)
[2018-10-24] MEDS: CARBIDOPA/LEVODOPA 50/200MG EXT REL TAB PO SCH ×3 (08:04→19:54)
[2018-10-24] MEDS: CHOLECALCIFEROL 1,000 UNITS TAB PO SCH (08:04)
[2018-10-24] MEDS ORDERED: PIPERACILLIN/TAZOBACTAM 3.375 GM in DEXTROSE 5% 100 ML IV ONE (08:15)
--- NOTE | 2018-10-24 08:59 | XRay Report ---
XR chest 1V portable CLINICAL HISTORY: possible aspiration dyspnea COMPARISON STUDY: 10/24/2018 FINDINGS: Persistent prominence of pulmonary vasculature. Stable cardiomegaly. Diaphragms are smooth. IMPRESSION: Stable components of congestive failure. Stable cardiomegaly. No change from the prior e xam. The above report was generated using voice recognition software. It may contain grammatical, syntax or spelling errors. Electronically signed by: Sanket Gomez M.D. 10/24/2018 8:58 AM
[2018-10-24] MEDS ORDERED: [UNRECOGNIZED DRUG - OTHER] PO SCH (09:00)
[2018-10-24] MEDS ORDERED: FUROSEMIDE 40 MG/4 ML VIAL IV ONE (09:23)
[2018-10-24 09:26] LABS: Basophils # (auto) 0.01 K/uL (0-0.2); Basophils % (auto) 0.2 %; Eosinophils # (auto) 0.03 K/uL (0-0.5); Eosinophils % (auto) 0.5 %; Hematocrit (blood only) 34.9 % (42-52); Hemoglobin 11.8 g/dL (14.0-18.0); Immature Granulocytes # (auto) 0.01 K/uL (0.00-0.02); Immature Granulocytes % (auto) 0.2 %; Lymphocytes # (auto) 0.96 K/uL (1.2-3.4); Lymphocytes % (auto) 16.8 %; Mean Platelet Volume 11.7 fL (7.4-10.4); Monocytes # (auto) 0.37 K/uL (0.11-0.59); Monocytes % (auto) 6.5 %; Neutrophils # (auto) 4.32 K/uL (1.4-6.5); Neutrophils % (auto) 75.8 %; Platelet Count 123 K/uL (130-400); RDW Coefficient of Variation 15.6 % (11.5-14.5); RDW Standard Deviation 55.5 fL (36.4-46.3); Red Blood Count 3.42 M/uL (4.7-6.1)
[2018-10-24] MEDS ORDERED: FUROSEMIDE 40 MG in SYRINGE 0 ML IV ONE (09:30)
[2018-10-24 09:40] LABS: Mean Corpuscular Hgb Conc 33.8 g/dL (32-36)
[2018-10-24 09:43] LABS: BUN Creatinine Ratio 22.6 (10-20); Blood Urea Nitrogen 27 mg/dl (7-18); Calcium 8.8 mg/dl (8.5-10.1); Carbon Dioxide 25 mmol/L (21-32); Chloride 111 mmol/L (98-107); Creatinine Clr Calc Pharmacy 55.2 ml/min; Est GFR (African American) 68.9; Est GFR (Non-African American) 59.5; Glucose 76 mg/dl (70-99); Magnesium 1.8 mg/dl (1.8-2.4); Phosphorus 3.6 mg/dl (2.5-4.9); Potassium 4.4 mmol/L (3.5-5.1); Sodium 143 mmol/L (136-145)
[2018-10-24 09:55] LABS: HCO3 ABG 26 mmol/L (19-24); Oxygen Saturation ABG 97.7 % (90-95); PCO2 ABG 41 mmHg (35-46); PO2 ABG 100 mm/Hg (80-95); pH ABG 7.43 (7.35-7.45)
[2018-10-24 09:57] LABS: NT Pro B Type Natriuretic Pept 211 pg/ml (0-900); Troponin I < 0.015 ng/ml (0-0.045)
[2018-10-24 10:16] LABS: Allen Test POS (Pos)
[2018-10-24] MEDS: PIPERACILLIN/TAZOBACTAM 3.375 GM in DEXTROSE 5% 100 ML IV SCH ×2 (13:37→22:33)
--- NOTE | 2018-10-24 17:50 | Hospitalist Progress Note ---
Date of Service October 24, 2018 Assessment & Plan (1) Hypothermia: (2) Hypothyroid: (3) Parkinson's disease: (4) A-fib: (5) DVT prophylaxis: : 73 y/o M abated on October 23, 2018 c/o hypothermia Hypothermia: Etiology unknown, however because patient has obvious possible aspiration, Will treat for aspiration pneumonia, CXR neg CT head neg PRP WNL Decreased mental status, check ammonia was negative ABG was negative, head CT upon admission has no acute disease, Vitamin B12 and folic acid were checked were normal, Will check a brain MRI to rule out CVA Mild anemia with an elevated MCV B12, folate normal range Mild elevated TSH at a, however T3-T4 were within normal limits, levothyroxine low dose was started upon admission, will discontinue it, Parkinson's disease: continue home meds A-fib: continue home meds DVT prophylaxis: SCDs Discussed with patient's son about patient's medical conditions , and update him on her condition and answered all questions, patient possible poor prognosis Subjective Nursing staff reported patient was choking aspiration, status, in this morning, Has put him in n.p.o., check chest x-ray, Review of system unable to obtain Physical Exam 2 Vital Signs (Past 24 Hours): Last Vital Signs Temp 36.7 C 10/24/18 15:15 Pulse 70 10/24/18 15:15 Resp 20 10/24/18 15:15 BP 117/55 L 10/24/18 15:15 Pulse Ox 94 10/24/18 15:15 Physical Exam: Obvious frail, chronically ill looking, minimal response, not able to engage in conversation, some slurry speeches, Atraumatic, pupils equal round response to the night, Eyes + anicteric sclerae Neck normal visual inspection and trachea midline Respiratory, significantly decreased breathing sound, with secretions in the throat, has some mild wet cough, no wheezing rhonchi's, Cardiovascular: Rate/Rhythm: regular rate and regular rhythm Gastrointestinal: abdomen not distended, abdomen soft; abdomen nontender Musculoskeletal: Mild tremor resting tremor, not able to have complete follow- up of movement Head/Neck/Chest: normocephalic and head atraumatic negative for edema, peripheral pulses intact Skin: no rashes, warm and dry, Neurologic Neurological evaluation, confused and limited response, no obvious deficit Results & Data Laboratory Results Laboratory Results - last 24 hr 10/24/18 10/24/18 10/24/18 09:02 09:02 09:38 WBC 5.70 RBC 3.42 L Hgb 11.8 L Hct 34.9 L MCV 102.0 H MCH 34.5 H MCHC 33.8 RDW Std Deviation 55.5 H RDW Coeff of Martha 15.6 H Plt Count 123 L MPV 11.7 H Immature Gran % (Auto) 0.2 Neut % (Auto) 75.8 Lymph % (Auto) 16.8 Casey % (Auto) 6.5 Eos % (Auto) 0.5 Baso % (Auto) 0.2 Immature Gran # (Auto) 0.01 Neut # (Auto) 4.32 Lymph # (Auto) 0.96 L Casey # (Auto) 0.37 Eos # (Auto) 0.03 Baso # (Auto) 0.01 ABG pH 7.43 ABG pCO2 41 ABG pO2 100 H ABG HCO3 26 H ABG O2 Saturation 97.7 H ABG Base Excess 1.6 Rusty Test POS Barometric Pressure 733.6 Oxygen Given 2L Sodium 143 Potassium 4.4 Chloride 111 H Carbon Dioxide 25 Anion Gap 7.0 BUN 27 H Creatinine 1.21 D Est Cr Clr Drug Dosing 55.2 Est GFR ( Amer) 68.9 Est GFR (Non-Af Amer) 59.5 BUN/Creatinine Ratio 22.6 H Glucose 76 Calcium 8.8 Phosphorus 3.6 Magnesium 1.8 Ammonia Troponin I < 0.015 NT-Pro-B Natriuret Pep 211 Procalcitonin 10/24/18 10/24/18 10/24/18 09:38 09:39 15:44 WBC RBC Hgb Hct MCV MCH MCHC RDW Std Deviation RDW Coeff of Martha Plt Count MPV Immature Gran % (Auto) Neut % (Auto) Lymph % (Auto) Casey % (Auto) Eos % (Auto) Baso % (Auto) Immature Gran # (Auto) Neut # (Auto) Lymph # (Auto) Casey # (Auto) Eos # (Auto) Baso # (Auto) ABG pH ABG pCO2 ABG pO2 ABG HCO3 ABG O2 Saturation ABG Base Excess Rusty Test Barometric Pressure Oxygen Given Sodium Potassium Chloride Carbon Dioxide Anion Gap BUN Creatinine Est Cr Clr Drug Dosing Est GFR ( Amer) Est GFR (Non-Af Amer) BUN/Creatinine Ratio Glucose Calcium Phosphorus Magnesium Ammonia 16.0 Troponin I NT-Pro-B Natriuret Pep 216 Procalcitonin 0.11 _ (1) Hypothermia Encounter type: initial encounter Qualified Code(s): T68.XXXA - Hypothermia, initial encounter
[2018-10-24] MEDS: SODIUM CHLORIDE 0.9% 1000ML 1,000 ML IV SCH (18:15)
[2018-10-24] MEDS: clonazePAM 0.5 MG TAB PO SCH (19:52)
[2018-10-24] MEDS: DUTASTERIDE PO SCH (19:53)
[2018-10-24] MEDS: TAMSULOSIN PO SCH (19:53)
[2018-10-24] MEDS ORDERED: GADOBUTROL 65ML VIAL IV PRN (21:56)
--- NOTE | 2018-10-24 22:06 | Magnetic Resonance Report ---
Brain MRI WITH AND WITHOUT CONTRAST HISTORY: Confusion. to rule out cva TECHNIQUE: Multiplanar multisequence MRI of the brain was performed both before and after the intrave nous administration of contrast. COMPARISON STUDY: Head CT 10/23/2018. FINDINGS: Motion artifact. There is no definite mass, hematoma, midline shift, or acute infarct. The paranasal sinuses are clear. The mastoid air cells are clear. The ventricles and sulci demonstrate mo derate age-related involutional changes. Scattered foci of T2 hyperintensity seen within the perivent ricular and subcortical white matter are nonspecific but suggestive of moderate microvascular ischemi c changes. The major vascular flow voids at the skull base are well-maintained. No abnormal enhanceme nt. IMPRESSION: Motion artifact. No definite acute intracranial abnormality. Moderate atrophy and presumed microvascu lar ischemic changes are noted. Electronically signed by: Silas Almeida M.D. 10/24/2018 10:04 PM
[2018-10-25] MEDS: PIPERACILLIN/TAZOBACTAM 3.375 GM in DEXTROSE 5% 100 ML IV SCH ×2 (05:30→13:58)
[2018-10-25] MEDS: SODIUM CHLORIDE 0.9% 1000ML 1,000 ML IV SCH (05:31)
[2018-10-25] MEDS: POLYETHYLENE (MIRALAX) 17 GM PACK PO SCH (07:44)
[2018-10-25] MEDS: CARBIDOPA/LEVODOPA 50/200MG EXT REL TAB PO SCH ×4 (07:44→22:04)
[2018-10-25] MEDS: DRONEDARONE HCL 400 MG TAB PO SCH ×3 (07:44→22:04)
[2018-10-25] MEDS: [UNRECOGNIZED DRUG - OTHER] PO SCH (07:44)
[2018-10-25] MEDS: ENTACAPONE 200 MG TAB PO SCH ×4 (07:44→22:04)
[2018-10-25] MEDS: ROPINIROLE HCL 1 MG TABLET PO SCH ×4 (07:44→22:04)
[2018-10-25] MEDS: FLINTSTONES COMPLETE CHEWABLE TAB PO SCH (07:44)
[2018-10-25] MEDS: CHOLECALCIFEROL 1,000 UNITS TAB PO SCH (07:45)
--- NOTE | 2018-10-25 16:28 | Hospitalist Progress Note ---
Date of Service October 25, 2018 Assessment & Plan (1) Hypothermia: (2) Hypothyroid: (3) Parkinson's disease: (4) A-fib: (5) DVT prophylaxis: 73 y/o M ad on October 23, 2018 c/o hypothermia Hypothermia: Etiology unknown, however because patient has obvious possible aspiration, tx for possible aspiration pneumonia, will switch to oral Augmentin when able to tolerate diet CXR repeated showed lung congestion, stop IV fluids because of patient history of CHF CT head neg Brain MRI was negative for stroke PRP WNL Decreased mental status, check ammonia was negative ABG was negative, head CT upon admission has no acute disease, Vitamin B12 and folic acid were checked were normal, my has rule out CVA Mild anemia with an elevated MCV B12, folate normal range Mild elevated TSH at a, however T3-T4 were within normal limits, levothyroxine low dose was started upon admission, will discontinue it, Parkinson's disease: continue home meds A-fib: continue home meds Bradycardia and accelerated hypertension, Will start low-dose lisinopril, and watch for bradycardia Called to patient's son and updated him current conditions Will resume diet per dietitian and speech DVT prophylaxis: SCDs Discussed with patient's son about patient's medical conditions , and update him on her condition and answered all questions, patient possible poor prognosis Subjective Generally looks more awake and alert, able to have minimal conversation Know his name and place, There was salivary drooping, possible is not new Decrease IV fluid, pay attention to fluid aspiration Review of system is limited because the patient's mental status change Physical Exam 2 Vital Signs (Past 24 Hours): Last Vital Signs Temp 36.6 C 10/25/18 15:15 Pulse 43 L 10/25/18 15:15 Resp 16 10/25/18 15:15 BP 170/70 H 10/25/18 15:15 Pulse Ox 96 10/25/18 15:15 Physical Exam: frail, chronically ill looking, somehow able to engage in conversation, some slurry speeches/drooping, Atraumatic, pupils equal round response to the night, anicteric sclerae Neck normal visual inspection and trachea midline Respiratory, significantly decreased breathing sound, with secretions in the throat, has some mild wet cough, no wheezing rhonchi's, Cardiovascular: Rate/Rhythm: regular rate and regular rhythm Gastrointestinal: abdomen not distended, abdomen soft; abdomen nontender Musculoskeletal: Mild tremor resting tremor, not able to have complete follow- up of movement Head/Neck/Chest: normocephalic and head atraumatic negative for edema, peripheral pulses intact Skin: no rashes, warm and dry, Neurologic Neurological evaluation, masked espression, no obvious deficit Results & Data Laboratory Results Laboratory Results - last 24 hr 10/25/18 16:29 POC Glucose 116 H Microbiology 10/23/18 09:50 Blood Blood Culture - Preliminary No growth to date. 10/23/18 09:44 Blood Blood Culture - Preliminary No growth to date. _ (1) Hypothermia Encounter type: initial encounter Qualified Code(s): T68.XXXA - Hypothermia, initial encounter
[2018-10-25] MEDS: AMOXICILLIN/CLAVULANATE 875 MG TAB PO SCH (18:26)
[2018-10-25] MEDS: LISINOPRIL 5 MG TAB PO SCH (18:26)
[2018-10-25] MEDS: DUTASTERIDE PO SCH ×2 (21:51→22:04)
[2018-10-25] MEDS: TAMSULOSIN PO SCH ×2 (21:51→22:04)
[2018-10-25] MEDS: clonazePAM 0.5 MG TAB PO SCH (21:52)
[2018-10-26] MEDS: FLINTSTONES COMPLETE CHEWABLE TAB PO SCH (07:43)
[2018-10-26] MEDS: LISINOPRIL 5 MG TAB PO SCH (07:43)
[2018-10-26] MEDS: ROPINIROLE HCL 1 MG TABLET PO SCH ×3 (07:43→21:31)
[2018-10-26] MEDS: CHOLECALCIFEROL 1,000 UNITS TAB PO SCH (07:43)
[2018-10-26] MEDS: AMOXICILLIN/CLAVULANATE 875 MG TAB PO SCH ×2 (07:44→16:36)
[2018-10-26] MEDS: ENTACAPONE 200 MG TAB PO SCH ×3 (07:45→21:30)
[2018-10-26] MEDS: [UNRECOGNIZED DRUG - OTHER] PO SCH (07:46)
[2018-10-26] MEDS: DRONEDARONE HCL 400 MG TAB PO SCH ×2 (07:46→21:32)
[2018-10-26] MEDS: CARBIDOPA/LEVODOPA 50/200MG EXT REL TAB PO SCH ×3 (07:47→21:31)
[2018-10-26] MEDS ORDERED: HydrALAZINE HCL 20 MG/ML VIAL IV PRN (08:16)
[2018-10-26] MEDS: LISINOPRIL 10 MG TAB PO SCH (09:19)
--- NOTE | 2018-10-26 12:36 | Hospitalist Progress Note ---
Date of Service October 26, 2018 Assessment & Plan (1) Hypothermia: (2) Hypothyroid: (3) Parkinson's disease: (4) A-fib: (5) DVT prophylaxis: 73 y/o M ad on October 23, 2018 c/o hypothermia, later found possible aspiration pneumonia, versus pneumonitis Hypothermia: Etiology unknown, Possible aspiration pneumonia on days, was on Zosyn, changed to Augmentin, will continue to total 7 days treatment possible aspiration, tx for possible aspiration pneumonia, will switch to oral Augmentin when able to tolerate diet CXR repeated showed lung congestion, stop IV fluids because of patient history of CHF Bradycardia, possible is not new, CT head neg Brain MRI was negative for stroke PRP WNL Decreased mental status, checked ammonia was negative ABG was negative, head CT upon admission has no acute disease, Vitamin B12 and folic acid were checked were normal, my has rule out CVA, resolved Mild anemia with an elevated MCV B12, folate normal range Mild elevated TSH at a, however T3-T4 were within normal limits, levothyroxine low dose was started upon admission, will discontinue it, Parkinson's disease: continue home meds A-fib: continue home meds accelerated hypertension, has started low-dose lisinopril, and watch for bradycardia Called to patient's son and updated him current conditions Will resume diet per dietitian and speech DVT prophylaxis: SCDs Possible [facility] Subjective Generally looks continue significantly improved, more awake and alert, able to have better conversation, more cooperative in physical exam Know his name and place, no more salivary drooping, Review of system is limited Review of Systems Constitutional: Positive weakness, or fatigue Respiratory: Occasional cough, no sputum, wheezing, Cardiac: No chest pain, No orthopnea, Abdomen: No pain, No nausea, No vomiting, No diarrhea, Musculoskeletal: No joint pain, No muscle pain, No swelling, No calf pain, : No dysuria, No urinary frequency, Neurologic: Positive weakness, no paralysis, resting tremor is not new Psychiatric: No depression symptoms, No anhedonism, No anxiety, Heme: No abnormal bleeding/bruising, No clotting problems, Skin: No rash, No itch, No new/changing skin lesions, No color change, No bleeding Physical Exam 2 Vital Signs (Past 24 Hours): Last Vital Signs Temp 36.4 C L 10/26/18 08:07 Pulse 43 L 10/26/18 08:07 Resp 18 10/26/18 08:07 BP 121/74 10/26/18 09:20 Pulse Ox 96 10/26/18 08:07 Physical Exam: Significant looks better than yesterday, more awake and alert, conversational, no obvious acute distress chronically ill looking, some slurry speeches, slow speech Atraumatic, pupils equal round response to the night, Eyes + anicteric sclerae Neck normal visual inspection and trachea midline Respiratory,mild decreased breathing sound, mild wet cough, no wheezing rhonchi 's, Cardiovascular: Rate/Rhythm: regular rate and regular rhythm Gastrointestinal: abdomen not distended, abdomen soft; abdomen nontender Musculoskeletal: Mild tremor resting tremor, not able to have complete follow- up of movement Head/Neck/Chest: normocephalic and head atraumatic negative for edema, peripheral pulses intact Skin: no rashes, warm and dry, Neurologic Neurological evaluation, masked face, resting tremor, arms rigidity Results & Data Laboratory Results Laboratory Results - last 24 hr 10/25/18 16:29 POC Glucose 116 H _ (1) Hypothermia Encounter type: initial encounter Qualified Code(s): T68.XXXA - Hypothermia, initial encounter
--- NOTE | 2018-10-26 13:58 | Fluoroscopy Report ---
FL video swallow HISTORY: assess for aspiration TECHNIQUE: Video fluoroscopic evaluation of swallowing was performed in the AP and lateral projection s by the speech pathology staff. The patient is fed nectar-thick and thin liquid barium, a barium coa danial wafer, and barium pudding. FLUOROSCOPY TIME: 3.4 minutes. A cine loop submitted.. COMPARISON STUDY: None. FINDINGS: There is overall poor pharyngeal constriction with multiple episodes of incomplete epiglott ic deflection. This results in moderate residue throughout the hypopharynx most pronounced within the vallecula. There are multiple episodes of delayed aspiration due to the residue. IMPRESSION: 1. Multiple episodes of aspiration as described above. 2. Please see the speech pathologist report for detailed findings and recommendations. Electronically signed by: Silas Almeida M.D. 10/26/2018 1:57 PM
[2018-10-26] MEDS: TAMSULOSIN PO SCH (21:29)
[2018-10-26] MEDS: DUTASTERIDE PO SCH (21:29)
[2018-10-26] MEDS: clonazePAM 0.5 MG TAB PO SCH (21:34)
[2018-10-27 06:17] LABS: BUN Creatinine Ratio 24.6 (10-20); Calcium 8.8 mg/dl (8.5-10.1); Creatinine Clr Calc Pharmacy 79.5 ml/min; Est GFR (African American) 101.4; Est GFR (Non-African American) 87.5; Magnesium 1.9 mg/dl (1.8-2.4); Potassium 3.4 mmol/L (3.5-5.1)
[2018-10-27] MEDS: [UNRECOGNIZED DRUG - OTHER] PO SCH (08:33)
[2018-10-27] MEDS: AMOXICILLIN/CLAVULANATE 875 MG TAB PO SCH (08:34)
[2018-10-27] MEDS: ENTACAPONE 200 MG TAB PO SCH (08:34)
[2018-10-27] MEDS: CARBIDOPA/LEVODOPA 50/200MG EXT REL TAB PO SCH (08:35)
[2018-10-27] MEDS: ROPINIROLE HCL 1 MG TABLET PO SCH (08:35)
[2018-10-27] MEDS: DRONEDARONE HCL 400 MG TAB PO SCH (08:35)
[2018-10-27] MEDS: LISINOPRIL 10 MG TAB PO SCH (08:35)
[2018-10-27] MEDS: CHOLECALCIFEROL 1,000 UNITS TAB PO SCH (08:35)
[2018-10-27] MEDS: FLINTSTONES COMPLETE CHEWABLE TAB PO SCH (08:36)
[2018-10-27] MEDS ORDERED: POTASSIUM CHLORIDE 10 MEQ TABCR PO ONE (09:00)
[2018-10-27 12:30] LABS: Microsomal Ab <1 IU/ML (<9); Thyroglobulin Antibodies <1 IU/ML (<OR=1)
--- NOTE | 2018-10-28 15:38 | Discharge Summary ---
Date of Service October 27, 2018 Principal Diagnosis Aspiration pneumonia, swallowing dysfunction, end-stage Parkinson's disease Discharge Data Allergies Allergy/AdvReac Type Severity Reaction Status Date / Time No Known Allergies Allergy Unverified 10/23/18 11:40 Consultations 10/23/18 11:21 ED Decision to Admit Stat 10/23/18 13:41 Consult Case Management - Discharge Planning Routine 10/27/18 08:24 Consult Palliative Care Routine Ordered Studies 10/23/18 09:36 CT head/brain wo con Stat 10/24/18 15:59 MR brain wo/w con Stat 10/26/18 12:45 [place] video swallow Routine Hospital Course (1) Hypothermia: (2) Hypothyroid: (3) Parkinson's disease: continue home meds (4) A-fib: (5) DVT prophylaxis: 73 y/o M ad on October 23, 2018 c/o hypothermia, later found possible aspiration pneumonia, versus pneumonitis Hypothermia and bradycardia possible because of severe Parkinson's disease and end-stage Parkinson's disease Possible aspiration pneumonia onthe day of admission, was on Zosyn, changed to Augmentin, will continue to total 7 days treatment possible aspiration, Swallowing dysfunction, high risk of aspiration, diet per current speech recommendation, will have RN to printout the speech recommendation and include it in the document when discharge Discussed with patient's son, recommend possible discussion above palliative care and hospice care after arriving [facility], Also advised nursing staff in [facility] to discuss with patient's son about palliative care CXR repeated showed lung congestion, stop IV fluids because of patient history of CHF Bradycardia, possible is not new, likely from Parkinson's disease CT head neg Brain MRI was negative for stroke PRP WNL Decreased mental status upon admission, checked ammonia was negative ABG was negative, head CT upon admission has no acute disease, Vitamin B12 and folic acid were checked were normal, my has rule out CVA, resolved Mild anemia with an elevated MCV B12, folate normal range Mild elevated TSH at a, however T3-T4 were within normal limits, levothyroxine low dose was started upon admission, will discontinue it, Parkinson's disease: It is severe and end-stage Parkinson's disease, continue home meds A-fib: continue home meds accelerated hypertension, has started low-dose lisinopril, and watch for bradycardia Called to patient's several times son and updated him current conditions Will resume diet per dietitian and speech DVT prophylaxis: SCDs discharge back to [facility] today Subjective upon discharge generally looks continue significantly improved, awake and alert, able to have better conversation, cooperative in physical exam Know his name and place, no more salivary drooping, Review of Systems upon discharge is limited, Constitutional: Positive weakness, or fatigue Physical Exam upon discharge Significant looks better than yesterday, more awake and alert, conversational, no obvious acute distress chronically ill looking, some slurry speeches, slow speech Atraumatic, pupils equal round response to the night, Eyes + anicteric sclerae Neck normal visual inspection and trachea midline Respiratory,mild decreased breathing sound, mild wet cough, no wheezing rhonchi 's, Cardiovascular: Rate/Rhythm: regular rate and regular rhythm Gastrointestinal: abdomen not distended, abdomen soft; abdomen nontender Musculoskeletal: Mild tremor resting tremor, not able to have complete follow- up of movement Head/Neck/Chest: normocephalic and head atraumatic negative for edema, peripheral pulses intact Skin: no rashes, warm and dry, Neurologic Neurological evaluation, masked face, resting tremor, arms rigidity Total Time Total Time Spent Total Time Spent (In Minutes): 35 Discharge Plan Discharge Items Patient Disposition: Transfer Nursing Home Fac Reason For Visit: HYPOTHERMIA Discharge Diagnosis: Possible aspiration, Possible severe Parkinson's disease which caused hypothermia, and bradycardia Swallowing dysfunction Condition: Serious Discharge Goals: Decrease discomfort and Diagnostic testing Activity: As commented below Non-emergency contact: Primary Care Provider Call non-emergency contact if: you have any medication questions Diet: Regular Addtl Provider Instructions: Hypothermia and bradycardia possible because of severe Parkinson's disease and end-stage Parkinson's disease Possible aspiration pneumonia on days, was on Zosyn, changed to Augmentin, will continue to total 7 days treatment possible aspiration, Swallowing dysfunction, high risk of aspiration, diet per current speech recommendation, RN please printout the speech recommendation and include it in the document when discharge Possible discussion above palliative care and hospice care after arriving [facility] , Nursing staff in [facility] please arrange medical doctor in [facility] jail to discuss with patient's son about palliative care Prescriptions: New lisinopril [Zestril] 10 mg Tablet 10 mg PO QAM 30 Days Qty: 30 RF: 0 amoxicillin-pot clavulanate 875-125 mg Tablet 1 tab PO BIDM 5 Days Qty: 10 RF: 0 Continue pediatric multivitamin [Gummi Bear Multivitamin] Tablet,Chewable 1 tab PO QAM RF: 0 ropinirole [Requip] 1 mg Tablet 1 mg PO TID RF: 0 polyethylene glycol 3350 [Miralax] 17 gram Powder In Packet 17 g PO BID RF: 0 clonazepam 0.5 mg Tablet 0.5 mg PO HS RF: 0 carbidopa-levodopa [Sinemet CR] 50-200 mg Tablet Extended Release 1 tab PO TID RF: 0 entacapone 200 mg Tablet 200 mg PO TID RF: 0 acetaminophen [Tylenol] 325 mg Capsule 650 mg PO Q6H PRN (Reason: Pain) RF: 0 cholecalciferol (vitamin D3) [Vitamin D3] 1,000 unit Tablet 1 tab PO QAM RF: 0 dronedarone [Multaq] 400 mg Tablet 400 mg PO BID RF: 0 dutasteride-tamsulosin [Bess] 0.5-0.4 mg Capsule, Er Multiphase 24 Hr 1 cap PO HS RF: 0 Stand-Alone Forms: [facility] Discharge Orders: Discharge Order (Routine); Ordered 10/27/18 Ordered By: Cornelio Pitts Skilled Items Patient informed of condition?: Yes DNR: Yes Communicable Disease: No Discharge Prognosis: Deteriorating Admission Data Admit Date/Time: 10/23/18 12:19 Attending Provider: Cornelio Pitts Admit Provider: Ellie Nelson Primary Care Provider: Loerna Navarrete Other Providers: Ellie Nelson ; Bina Malone ; Mirna Mcneal ; Betsy Rhoades Service: Medical Other Interventions: Discharge Summary Assessment (RN) Last Done: 10/27/18 11:02 DC Date/Time DO NOT enter until pt leaves facility: 10/27/18 13:39
== END 2018-10-27 13:39 | DRG 56 ==
LOC: ED 09:30 → SUATTDRO 12:19 → 4E 12:19